=== PATIENT | female | born 1985 | race Caucasian/White ===

== ENCOUNTER 2019-04-25 08:21 | Outpatient (CLI) | payer OTHER ==
--- NOTE | 2019-04-25 09:05 | MMO ---
Bilateral MAMMO Bilat Diag [facility]. CLINICAL HISTORY: Patient is 33 years old and is seen for diagnostic exam. The patient has the following family history of breast cancer: maternal aunt, at age 30 and maternal grandmother. VIEWS: The views performed were: bilateral craniocaudal with tomosynthesis; bilateral mediolateral oblique with tomosynthesis; and bilateral mediolateral. FILMS COMPARED: The present examination has been compared to a prior imaging study performed at [facility] on 03/16/2019. MAMMOGRAM FINDINGS: The breasts are extremely dense, which may lower the sensitivity of mammography. There are benign appearing densities seen in both breasts. IMPRESSION: BENIGN APPEARING DENSITIES IN BOTH BREASTS ARE PROBABLY BENIGN. FOLLOW-UP IN 6 MONTHS IS RECOMMENDED. THE PATIENT SHOULD RETURN FOR MAMMOGRAPHY AFTER SHE IS DONE WITH BREAST FEEDING. THE RESULTS OF THIS EXAM WERE SENT TO THE PATIENT. ACR BI-RADS Category 3 - Probably benign finding - short interval follow-up suggested. [facility] will notify the patient of the need for additional imaging services. MAMMOGRAPHY NOTE: 1. A negative mammogram report should not delay a biopsy if a dominant of clinically suspicious mass is present. 2. Approximately 10% to 15% of breast cancers are not detected by mammography. 3. Adenosis and dense breasts may obscure an underlying neoplasm.
== END 2019-04-25 08:22 | disposition home or self-care (01) ==
LOC: BICMAMMO 08:21
DX: R92.8 Other abnormal and inconclusive findings on diagnostic imaging of breast (principal); Z80.3 Family history of malignant neoplasm of breast
CPT/HCPCS: 77066; G0279